=== PATIENT | male | born 1985 | race Caucasian/White ===

== ENCOUNTER 2019-05-07 14:25 | Inpatient (IN) | payer OTHER ==
[2019-05-07 16:17] VITALS: BMI 28.3
--- NOTE | 2019-05-07 17:03 | HP ---
CIWA Score - Admission Criteria [facility]AS Guidelines: Admission for Medically Managed Detox: Requires at least one of the followin. CIWA greater than 12 2. Seizures within the past 24 hours 3. Delirium tremens within the past 24 hours 4. Hallucinations within the past 24 hours 5. Acute intervention needed for co occurring medical disorder 6. Acute intervention needed for co occurring psychiatric disorder 7. Severe withdrawal that cannot be handled at a lower level of care (continued vomiting, continued diarrhea, abnormal vital signs) requiring intravenous medication and/or fluids 8. Admission ROS S - HPI Chief Complaint: Seeking admission to Rehab for crack cocaine dependence Allergies/Adverse Reactions: Allergies Allergy/AdvReac Type Severity Reaction Status Date / Time No Known Allergies Allergy Verified 05/07/19 16:08 History of Present Illness: 33 years old male is seeking admission to rehab for crack cocaine dependence. Patient denies medical history and reports psychiatric history of bipolar disorder, schizophrenia and PTSD. Patient reports that this is his first admission to [facility] and first admission to Rehab. Patient is unemployed and lives with his sister in [place]. He denies suicide attempt and suicidal ideation at this time. Exam Limitations: No Limitations - Ebola screening Have you traveled outside of the country in the last 21 days: No (N) Have you had contact with anyone from an Ebola affected area: No Do you have a fever: No - Review of Systems Constitutional: No Symptoms Reported EENT: reports: No Symptoms Reported Respiratory: reports: No Symptoms reported Cardiac: reports: No Symptoms Reported GI: reports: No Symptoms Reported : reports: No Symptoms Reported Musculoskeletal: reports: No Symptoms Reported Integumentary: reports: No Symptoms Reported Neuro: reports: No Symptoms reported Endocrine: reports: No Symptoms Reported Hematology: reports: No Symptoms Reported Psychiatric: reports: No Sypmtoms Reported, Mood/Affect Appropiate, Orientated x3 Other Systems: Reviewed and Negative Patient History - Patient Medical History Hx Anemia: No Hx Asthma: No Hx Chronic Obstructive Pulmonary Disease (COPD): No Hx Cardiac Disorders: No Hx Congestive Heart Failure: No Hx Hypertension: No Hx Hypercholesterolemia: No Hx Seizures: No Hx Dementia: No Hx Diabetes: No Hx Gastrointestinal Disorders: No Hx Liver Disease: No Hx Genitourinary Disorders: No Hx Sexually Transmitted Disorders: No Hx Renal Disease (ESRD): No Hx Thyroid Disease: No Hx Human Immunodeficiency Virus (HIV): No (Negative 2019) Hx Hepatitis C: No Hx Depression: No Hx Suicide Attempt: No (Denies suicide attempt and suicidal ideation at thiss time) Hx Bipolar Disorder: Yes (Risperdal, depakote, congentin, abilify) Hx Schizophrenia: Yes (Risperdal, depakote, congentin, abilify) - Patient Surgical History Past Surgical History: Yes Hx Neurologic Surgery: No Hx Cataract Extraction: No Hx Cardiac Surgery: No Hx Lung Surgery: No Hx Abdominal Surgery: No Hx Appendectomy: No Hx Cholecystectomy: No Hx Genitourinary Surgery: No Hx Orthopedic Surgery: No Other Surgical History: Tonsilectomy at age 11, Back and shoulder surgery 2012 Anesthesia Reaction: No - PPD History Previous Implant?: Yes Documented Results: Negative w/o proof Implanted On Prior [facility] Admission?: No PPD to be Administered?: Yes - Reproductive History Patient is a Female of Child Bearing Age (11 -55 yrs old): No (male) - Smoking Cessation Smoking history: Current every day smoker Have you smoked in the past 12 months: Yes Aproximately how many cigarettes per day: 10 Hx Chewing Tobacco Use: No Initiated information on smoking cessation: Yes 'Breaking Loose' booklet given: 05/07/19 - Substance & Tx. History Hx Alcohol Use: No Hx Substance Use: Yes Substance Use Type: Cocaine Hx Substance Use Treatment: No - Substances abused Crack Substance route: Smoking Frequency: Daily Amount used: $300 Age of first use: 32 Date of last use: 05/06/19 Admission Physical Exam [facility] - Vital Signs Vital Signs: Vital Signs - 24 hr 05/07/19 16:08 Temperature 97.2 F L Pulse Rate 73 Respiratory 20 Rate Blood Pressure 124/75 - Physical General Appearance: Yes: Within Normal Limits HEENTM: Yes: Nasal Congestion Respiratory: Yes: Lungs Clear, Normal Breath Sounds, No Respiratory Distress Neck: Yes: Within Normal Limits Breast: Yes: Breast Exam Deferred Cardiology: Yes: Regular Rhythm, Regular Rate Abdominal: Yes: Normal Bowel Sounds, Soft Genitourinary: Yes: Within Normal Limits Back: Yes: Normal Inspection Musculoskeletal: Yes: Within Normal Limits Extremities: Yes: Within Normal Limits Neurological: Yes: Within Normal Limits, Alert, Normal Mood/Affect Integumentary: Yes: Warm Lymphatic: Yes: Within Normal Limits Cleared for Admission [facility] - Detox or Rehab [facility] Level of Care: Observation Bed Claeared for Rehab Admission: Yes Breathalyzer - Breathalyzer Breathalyzer: 0 Urine Drug Screen - Test Device Lot number: [id number] Expiration date: 12/03/20 - Control Is test valid?: Yes - Results Drug screen NEGATIVE: No Urine drug screen results: TJ-Cocaine Inpatient Rehab Admission - Rehab Decision to Admit Inpatient rehab admission?: Yes - Initial Determination Are CD services needed?: No Free of communicable disease: Yes Not in need of hospitalization: Yes - Rehab Admission Criteria Previous failed treatment: Yes Poor recovery environment: Yes Comorbidities: Yes Lacks judgement: No Patient is meeting Inpatient Rehab admission criteria:: Yes
[2019-05-07] MEDS ORDERED: MAGNESIUM HYDROX 2400MG/30ML ORAL SUSPENSION 30 ML CUP PO PRN (17:12)
[2019-05-07] MEDS ORDERED: NICOTINE POLACRILEX 2 MG GUM BUC PRN (17:12)
[2019-05-07] MEDS ORDERED: MENTHOL/PHENOL 1 EACH UD MM PRN (17:12)
[2019-05-07] MEDS ORDERED: LOPERAMIDE HCL 2 MG CAPSULE PO PRN (17:12)
[2019-05-07] MEDS ORDERED: MAGNESIUM CITRATE 300 ML BOTTLE PO PRN (17:12)
[2019-05-07] MEDS ORDERED: ACETAMINOPHEN 325 MG TABLET (FP) PO PRN (17:12)
[2019-05-07] MEDS ORDERED: P-EPHED 60MG/TRIPROLIDI 2.5MG TABLET PO PRN (17:12)
[2019-05-07] MEDS: MELATONIN 5 MG TABLETS PO PRN (21:50)
[2019-05-07] MEDS: THIAMINE HCL 100 MG TABLET (FP) PO SCH (21:50)
[2019-05-08] MEDS: IBUPROFEN 400 MG TABLET (FP) PO PRN (06:33)
--- NOTE | 2019-05-08 09:50 | PN ---
[facility] Progress Note Note: Patient is a new admission to [facility] for crack/cocaine dependence. Patient is first time admission to [facility]. Has hx of Bipolar disorder. C/O muscle spasms to lower back, denies recent injuries/fall. Non-radiating, level 5/10. Vital Signs Temperature 97.9 F 05/08/19 07:38 Pulse Rate 76 05/08/19 07:38 Respiratory Rate 20 05/08/19 07:38 Blood Pressure 136/79 05/08/19 07:38 O2 Sat by Pulse Oximetry (%) PE exam limited as patient states " I am tired and sleeping" alert and oriented x 3 in NAD, sleepy skin warm and dry ext full rom, no visible edema A/P: crack/cocaine dependence Muscle spasms Labs pending will add flexeril 5mg tid prn continue rehab services
[2019-05-08 10:14] LABS: ALBUMIN 3.6 g/dl (3.4-5.0); BILIRUBIN,TOTAL 0.6 mg/dL (0.2-1); BLOOD UREA NITROGEN 10.8 mg/dL (7-18); CALCIUM 9.2 mg/dL (8.5-10.1); POTASSIUM 4.1 mmol/L (3.5-5.1); TOT PROT 6.4 g/dl (6.4-8.2)
[2019-05-08 10:16] LABS: HEMATOCRIT 44.7 % (35.4-49); HEMOGLOBIN 14.3 GM/dL (11.7-16.9); MCH 28.7 pg (25.7-33.7); MEAN CELL VOLUME 89.8 fl (80-96); MEAN PLT VOLUME 8.8 fl (7.5-11.1); PLATELET COUNT 197 K/MM3 (134-434); RBC 4.98 M/mm3 (4.00-5.60); RDW 14.7 % (11.9-15.9); WHITE BLOOD COUNT 5.2 K/mm3 (4.0-10.0)
[2019-05-08] MEDS: PRENATAL VITAMINS W/ FOLIC ACID TABLET (FP) PO SCH (10:33)
[2019-05-08] MEDS: guaiFENesin 200 MG/10 ML 10 ML UNIT-DOSE CUPS PO PRN (10:34)
[2019-05-08] MEDS: NICOTINE 14 MG/24 HOURS TOPICAL PATCH TD SCH (10:34)
[2019-05-08] MEDS: CYCLOBENZAPRINE HCL 5 MG TABLET PO PRN (11:11)
--- NOTE | 2019-05-08 12:50 | CONSULT ---
[facility] Psychiatric Consult - Data Date of interview: 05/08/19 Admission source: [facility] Identifying data: First visit to [facility] and direct admission to [address] for this 33 y/o male who sought rehabilitative care to address his DICK issues (cocaine, nicotine) co-morbid with schizoaffective disorder. Patient is single, father of one, domiciled (lives with sister), unemployed and supported by his relatives. Substance Abuse History: Discussed with the patient. Details in current [facility] report as follows : Smoking history: Current every day smoker. Have you smoked in the past 12 months: Yes. Aproximately how many cigarettes per day: 10. Hx Chewing Tobacco Use: No. Initiated information on smoking cessation: Yes. ' Breaking Loose' booklet given: 05/07/19. - Substance & Tx. History. Hx Alcohol Use: No. Hx Substance Use: Yes. Substance Use Type: Cocaine. Hx Substance Use Treatment: No. - Substances abused. Crack. Substance route: Smoking. Frequency: Daily. Amount used: $300. Age of first use: 32. Date of last use: 05/06/19 Medical History: Medical profile is remarkable for antecedent of tonsillectomy ( age 11) and history of orthosurgery (shoulder + back) in 2012. Complaint of chronic lumbar pain. Psychiatric History: Patient endorses history of " a few " psychiatric hospitalizations ([facility] + [facility]) years ago. Reported diagnosis : schizoaffective disorder. Mr Pratt is reportedly followed by [facility] at the [facility] ([facility]) for medication management (risperdal + depakote + cogentin + aripriprazole). Doses are not recalled by the patient. He, however, reports adequate adherence to his medications. Hospice Massage Therapist contacted the pharmacist at [facility] ) : confirmed scripts (not picked up since January 2019) for risperdal 2 mg/hs + depakote 100 mg/bid + abilify 15 mg/day + cogentin 1 mg/hs. Patient denies history of suicide attempts. Physical/Sexual Abuse/Trauma History: Patient denies. Additional Comment: Urine drug screen results: TJ-Cocaine. Noted. Mental Status Exam - Mental Status Exam Alert and Oriented to: Time, Place, Person Cognitive Function: Good Patient Appearance: Well Groomed (tattoos on both forearms + left arm) Mood: Withdrawn, Anxious, Hopeful Affect: Mood Congruent, Constricted Patient Behavior: Fatigued, Appropriate, Cooperative Speech Pattern: Clear, Appropriate Voice Loudness: Normal Thought Process: Intact, Goal Oriented Thought Disorder: Not Present Hallucinations: Denies Suicidal Ideation: Denies Homicidal Ideation: Denies Insight/Judgement: Fair Sleep: Poorly, Difficulty falling asleep Appetite: Good Gait/Station: Normal Psychiatric Findings - Problem List ([place] 1, 2,3) (1) Cocaine use disorder Current Visit: Yes Status: Chronic (2) Nicotine dependence Current Visit: Yes Status: Chronic (3) Substance induced mood disorder Current Visit: Yes Status: Chronic (4) History of schizoaffective disorder Current Visit: Yes Status: Chronic (5) Insomnia Current Visit: Yes Status: Chronic - Initial Treatment Plan Initial Treatment Plan: Psychoeducation. Sleep hygiene. Support. Motivational counseling done in this session. Medications verified (refer to Psychiatric History section). Resumed as follows : risperdal 2 mg po hs + cogentin 1 mg po hs + depakote 500 mg po bid. Side effects/benefits of each drug are discussed with the patient. Mr Pratt is in agreement with this plan of care. Informed consent (verbal) given to MD. Valproic acid level : already requested and result pending. Labs revisited. LFTS + CBC are normal. Observation.
--- NOTE | 2019-05-08 13:27 | EKG ---
Test Reason : Blood Pressure : / mmHG Vent. Rate : 069 BPM Atrial Rate : 069 BPM P-R Int : 116 ms QRS Dur : 092 ms QT Int : 386 ms P-R-T Axes : 035 057 040 degrees QTc Int : 413 ms NORMAL SINUS RHYTHM NORMAL ECG NO PREVIOUS ECGS AVAILABLE Confirmed by SIM WEBBER MD ([id number]) on 05/08/2019 1:27:01 PM Referred By: Confirmed By:SIM WEBBER MD
[2019-05-08] MEDS: risperiDONE 2 MG TABLET PO SCH (21:18)
[2019-05-08] MEDS: DIVALPROEX SODIUM 500 MG TABLET E.C. PO SCH (21:18)
[2019-05-08] MEDS: THIAMINE HCL 100 MG TABLET (FP) PO SCH (21:18)
[2019-05-08] MEDS: BENZTROPINE MESYLATE 1 MG TABLET PO SCH (21:18)
[2019-05-09] MEDS: guaiFENesin 200 MG/10 ML 10 ML UNIT-DOSE CUPS PO PRN (02:04)
[2019-05-09] MEDS ORDERED: ARIPiprazole 10 MG TABLET PO SCH (10:00)
--- NOTE | 2019-05-09 10:02 | PN ---
[facility] Progress Note Note: history of hemorrhoid has hemorrhoidectomy 2 years ago constipated, Vital Signs Temperature 98.0 F 05/09/19 06:48 Pulse Rate 75 05/09/19 06:48 Respiratory Rate 20 05/09/19 06:48 Blood Pressure 132/82 05/09/19 06:48 O2 Sat by Pulse Oximetry (%) no bleeding now treatment advise fluid,diet modification,avoid constipation colace 100mgs po tid anusol hc cream close monitoring financial advisor evaluation for nutrition
[2019-05-09] MEDS: PRENATAL VITAMINS W/ FOLIC ACID TABLET (FP) PO SCH (10:39)
[2019-05-09] MEDS: NICOTINE 14 MG/24 HOURS TOPICAL PATCH TD SCH (10:40)
[2019-05-09] MEDS: DIVALPROEX SODIUM 500 MG TABLET E.C. PO SCH ×2 (10:40→22:11)
[2019-05-09] MEDS: HYDROCORTISONE 2.5% TOPICAL CREAM 30 GM TUBE TP SCH ×2 (10:55→22:11)
[2019-05-09] MEDS: DOCUSATE SODIUM 100 MG CAPSULE (FP) PO PRN (16:54)
[2019-05-09] MEDS: risperiDONE 2 MG TABLET PO SCH (22:11)
[2019-05-09] MEDS: BENZTROPINE MESYLATE 1 MG TABLET PO SCH (22:11)
[2019-05-09] MEDS: THIAMINE HCL 100 MG TABLET (FP) PO SCH (22:11)
[2019-05-10] MEDS: HYDROCORTISONE 2.5% TOPICAL CREAM 30 GM TUBE TP SCH ×2 (10:10→21:07)
[2019-05-10] MEDS: NICOTINE 14 MG/24 HOURS TOPICAL PATCH TD SCH (10:10)
[2019-05-10] MEDS: PRENATAL VITAMINS W/ FOLIC ACID TABLET (FP) PO SCH (10:10)
[2019-05-10] MEDS: DIVALPROEX SODIUM 500 MG TABLET E.C. PO SCH ×2 (10:10→21:06)
[2019-05-10] MEDS: DOCUSATE SODIUM 100 MG CAPSULE (FP) PO PRN (10:11)
[2019-05-10 13:36] LABS: URINE APPEARANCE CLEAR; URINE BILIRUBIN NEGATIVE (NEGATIVE); URINE COLOR YELLOW; URINE GLUCOSE (UA) NEGATIVE (NEGATIVE); URINE KETONE TRACE (NEGATIVE); URINE LEUK ESTERASE NEGATIVE (NEGATIVE); URINE NITRITE NEGATIVE (NEGATIVE); URINE PROTEIN NEGATIVE (NEGATIVE); URINE UROBILINOGEN 0.2 mg/dL (0.2-1.0)
[2019-05-10] MEDS: guaiFENesin 200 MG/10 ML 10 ML UNIT-DOSE CUPS PO PRN (15:15)
[2019-05-10] MEDS: risperiDONE 2 MG TABLET PO SCH (21:06)
[2019-05-10] MEDS: THIAMINE HCL 100 MG TABLET (FP) PO SCH (21:06)
[2019-05-10] MEDS: MELATONIN 5 MG TABLETS PO PRN (21:06)
[2019-05-10] MEDS: BENZTROPINE MESYLATE 1 MG TABLET PO SCH (21:06)
[2019-05-11] MEDS: PRENATAL VITAMINS W/ FOLIC ACID TABLET (FP) PO SCH (11:45)
[2019-05-11] MEDS: DIVALPROEX SODIUM 500 MG TABLET E.C. PO SCH ×2 (11:45→21:20)
[2019-05-11] MEDS: HYDROCORTISONE 2.5% TOPICAL CREAM 30 GM TUBE TP SCH ×2 (11:46→21:22)
[2019-05-11] MEDS: NICOTINE 14 MG/24 HOURS TOPICAL PATCH TD SCH (11:46)
[2019-05-11] MEDS: DOCUSATE SODIUM 100 MG CAPSULE (FP) PO PRN (18:23)
[2019-05-11] MEDS: MELATONIN 5 MG TABLETS PO PRN (21:20)
[2019-05-11] MEDS: BENZTROPINE MESYLATE 1 MG TABLET PO SCH (21:20)
[2019-05-11] MEDS: risperiDONE 2 MG TABLET PO SCH (21:20)
[2019-05-11] MEDS: THIAMINE HCL 100 MG TABLET (FP) PO SCH (21:21)
[2019-05-12] MEDS: DIVALPROEX SODIUM 500 MG TABLET E.C. PO SCH ×2 (10:25→21:29)
[2019-05-12] MEDS: PRENATAL VITAMINS W/ FOLIC ACID TABLET (FP) PO SCH (10:25)
[2019-05-12] MEDS: NICOTINE 14 MG/24 HOURS TOPICAL PATCH TD SCH (10:26)
[2019-05-12] MEDS: hydrOXYzine PAMOATE 25 MG CAPSULE (FP) PO PRN (10:28)
[2019-05-12] MEDS: MAG HYDROX/AL HYDROX/SIMETH 30 ML UNIT-DOSE CUP PO PRN (10:28)
[2019-05-12] MEDS: DOCUSATE SODIUM 100 MG CAPSULE (FP) PO PRN ×2 (10:28→18:55)
[2019-05-12] MEDS: CYCLOBENZAPRINE HCL 5 MG TABLET PO PRN (10:28)
[2019-05-12] MEDS: HYDROCORTISONE 2.5% TOPICAL CREAM 30 GM TUBE TP SCH ×2 (10:30→21:29)
[2019-05-12] MEDS ORDERED: BISMUTH SUBSALICYLATE 262 MG/15 ML BTL PO PRN (10:52)
--- NOTE | 2019-05-12 11:47 | PN ---
Psychiatric Progress Note Vital Signs: Vital Signs Period Temp Pulse Resp BP Sys/Duron Pulse Ox Last 24 Hr 97.9 F 72 18-20 118/74 Date of Session: 05/12/19 Chief Complaint:: "i'm not sleeping at all." HPI: Patient admitted to [facility] for cocaine + nicotine dependence co-morbid schizoaffective disorder. Consultation ordered for insomnia. ROS: Patient is cooperative, alert + oriented X3. Current Medications: Active Medications Generic Name Dose Route Start Last Admin Trade Name Freq PRN Reason Stop Dose Admin Acetaminophen 650 mg 05/07/19 17:12 Tylenol - PO Q4H PRN FEVER Al Hydroxide/Mg Hydroxide 30 ml 05/07/19 17:12 05/12/19 10:28 Mylanta Oral Suspension - PO 30 ml Q6H PRN Administration DYSPEPSIA Benztropine Mesylate 1 mg 05/08/19 22:00 05/11/19 21:20 Cogentin - PO 1 mg HS HONORIO Administration Bismuth Subsalicylate 30 ml 05/12/19 10:52 Pepto-Bismol Liquid - PO BID PRN DIARRHEA Cyclobenzaprine HCl 5 mg 05/08/19 09:46 05/12/19 10:28 Cyclobenzaprine Hcl PO 5 mg TID PRN Administration BACK PAIN Divalproex Sodium 500 mg 05/08/19 22:00 05/12/19 10:25 Depakote - PO 500 mg BID HONORIO Administration Docusate Sodium 100 mg 05/09/19 10:02 05/12/19 10:28 Colace - PO 100 mg Q8H PRN Administration CONSTIPATION Eucalyptus/Menthol/Phenol/Sorbitol 1 each 05/07/19 17:12 Cepastat Lozenge - MM Q4H PRN SORE THROAT Guaifenesin 10 ml 05/07/19 17:12 05/10/19 15:15 Robitussin - PO 10 ml Q6H PRN Administration COUGH Hydrocortisone 1 applic 05/09/19 10:15 05/12/19 10:30 Anusol 2.5% Hc Cream - TP 1 applic BID HONORIO Administration Hydroxyzine Pamoate 25 mg 05/07/19 17:12 05/12/19 10:28 Vistaril - PO 25 mg Q4H PRN Administration AGITATION Ibuprofen 400 mg 05/07/19 17:12 05/08/19 06:33 Motrin - PO 400 mg Q6H PRN Administration Pain level 4-6 Loperamide HCl 4 mg 05/07/19 17:12 Imodium - PO Q6H PRN DIARRHEA Magnesium Citrate 300 ml 05/07/19 17:12 Citroma - PO Q48H PRN CONSTIPATION Magnesium Hydroxide 30 ml 05/07/19 17:12 Milk Of Magnesia - PO DAILY PRN CONSTIPATION Melatonin 5 mg 05/07/19 22:00 05/11/19 21:20 Melatonin PO 5 mg HS PRN Administration INSOMNIA Nicotine 14 mg 05/08/19 10:00 05/12/19 10:26 Nicoderm Patch - TD Not Given DAILY HONORIO Nicotine Polacrilex 2 mg 05/07/19 17:12 05/10/19 17:47 Nicorette Gum - BUC 2 mg Q2H PRN Administration NICOTINE REPLACEMENT RX Multivit/Folic Acid/Iron 1 tab 05/08/19 10:00 05/12/19 10:25 Vitamins (Sjr) - PO 1 tab DAILY HONORIO Administration Pseudoephedrine/Triprolidine 1 combo 05/07/19 17:12 Actifed - PO TID PRN NASAL CONGESTION Risperidone 2 mg 05/08/19 22:00 05/11/19 21:20 Risperdal - PO 2 mg HS HONORIO Administration Thiamine HCl 100 mg 05/07/19 22:00 05/11/19 21:21 Vitamin B1 - PO 100 mg HS HONORIO Administration Medication(s) Change(s): Yes. Current Side Effect: No Lab tests ordered: No Lab tests reviewed: Yes Provider note:: Patient seen by Dr. Prather. Dr. Prather note read and appreciated. Patient with a history of schizoaffective disorder who is currently reporting difficulty sleeping. Will order Belsomra 10mg HS PRN. Patient educated on the importance of proper sleep hygiene. Patient denies auditory/visual hallucinations, suicidal/homicidal ideation. Total face to face time:: 20 Mental Status Exam - Mental Status Exam Alert and Oriented to: Time, Place, Person Cognitive Function: Good Patient Appearance: Well Groomed Mood: Euthymic Affect: Appropriate Patient Behavior: Appropriate, Cooperative Speech Pattern: Clear Voice Loudness: Normal Thought Process: Intact, Goal Oriented Thought Disorder: Not Present Hallucinations: Denies Suicidal Ideation: Denies Homicidal Ideation: Denies Insight/Judgement: Poor Sleep: Poorly Appetite: Fair Muscle strength/Tone: Normal Gait/Station: Normal Psychiatric Treatment Plan - Problem List (1) Cocaine use disorder Current Visit: Yes (2) History of schizoaffective disorder Current Visit: Yes (3) Insomnia Current Visit: Yes (4) Nicotine dependence Current Visit: Yes (5) Substance induced mood disorder Current Visit: Yes
[2019-05-12] MEDS: risperiDONE 2 MG TABLET PO SCH (21:29)
[2019-05-12] MEDS: THIAMINE HCL 100 MG TABLET (FP) PO SCH (21:29)
[2019-05-12] MEDS: MELATONIN 5 MG TABLETS PO PRN (21:29)
[2019-05-12] MEDS: BENZTROPINE MESYLATE 1 MG TABLET PO SCH (21:29)
[2019-05-12] MEDS ORDERED: SUVOREXANT 10 MG TABLET PO PRN (22:00)
[2019-05-13] MEDS: guaiFENesin 200 MG/10 ML 10 ML UNIT-DOSE CUPS PO PRN (06:00)
[2019-05-13] MEDS: MAG HYDROX/AL HYDROX/SIMETH 30 ML UNIT-DOSE CUP PO PRN (06:01)
[2019-05-13] MEDS: DIVALPROEX SODIUM 500 MG TABLET E.C. PO SCH ×2 (10:06→21:38)
[2019-05-13] MEDS: NICOTINE 14 MG/24 HOURS TOPICAL PATCH TD SCH (10:06)
[2019-05-13] MEDS: PRENATAL VITAMINS W/ FOLIC ACID TABLET (FP) PO SCH (10:06)
[2019-05-13] MEDS: CYCLOBENZAPRINE HCL 5 MG TABLET PO PRN (10:09)
[2019-05-13] MEDS: DOCUSATE SODIUM 100 MG CAPSULE (FP) PO PRN (10:09)
[2019-05-13] MEDS: hydrOXYzine PAMOATE 25 MG CAPSULE (FP) PO PRN (10:09)
[2019-05-13] MEDS: HYDROCORTISONE 2.5% TOPICAL CREAM 30 GM TUBE TP SCH ×2 (10:10→21:38)
[2019-05-13] MEDS: risperiDONE 2 MG TABLET PO SCH (21:38)
[2019-05-13] MEDS: THIAMINE HCL 100 MG TABLET (FP) PO SCH (21:38)
[2019-05-13] MEDS: MELATONIN 5 MG TABLETS PO PRN (21:38)
[2019-05-13] MEDS: BENZTROPINE MESYLATE 1 MG TABLET PO SCH (21:38)
[2019-05-14] MEDS: DIVALPROEX SODIUM 500 MG TABLET E.C. PO SCH ×2 (10:14→21:25)
[2019-05-14] MEDS: DOCUSATE SODIUM 100 MG CAPSULE (FP) PO PRN (10:14)
[2019-05-14] MEDS: CYCLOBENZAPRINE HCL 5 MG TABLET PO PRN (10:14)
[2019-05-14] MEDS: MAG HYDROX/AL HYDROX/SIMETH 30 ML UNIT-DOSE CUP PO PRN (10:14)
[2019-05-14] MEDS: hydrOXYzine PAMOATE 25 MG CAPSULE (FP) PO PRN (10:14)
[2019-05-14] MEDS: PRENATAL VITAMINS W/ FOLIC ACID TABLET (FP) PO SCH (10:14)
[2019-05-14] MEDS: guaiFENesin 200 MG/10 ML 10 ML UNIT-DOSE CUPS PO PRN (10:15)
[2019-05-14] MEDS: HYDROCORTISONE 2.5% TOPICAL CREAM 30 GM TUBE TP SCH ×2 (10:45→21:26)
[2019-05-14] MEDS: NICOTINE 14 MG/24 HOURS TOPICAL PATCH TD SCH (10:45)
--- NOTE | 2019-05-14 13:56 | PN ---
S Progress Note Note: Patient is still complaining of sleeping poorly despite taking Belsomra 10 mg/ hs. Requests to be ordered a higher dose of medication. Belsomra dosage is increased to 15 mg/hs prn
[2019-05-14] MEDS: BENZTROPINE MESYLATE 1 MG TABLET PO SCH (21:24)
[2019-05-14] MEDS: risperiDONE 2 MG TABLET PO SCH (21:24)
[2019-05-14] MEDS: IBUPROFEN 400 MG TABLET (FP) PO PRN (21:25)
[2019-05-14] MEDS: THIAMINE HCL 100 MG TABLET (FP) PO SCH (21:25)
[2019-05-14] MEDS: SUVOREXANT 15 MG TABLET PO PRN (21:27)
[2019-05-15] MEDS: DIVALPROEX SODIUM 500 MG TABLET E.C. PO SCH ×2 (09:56→21:08)
[2019-05-15] MEDS: DOCUSATE SODIUM 100 MG CAPSULE (FP) PO PRN ×2 (09:56→18:28)
[2019-05-15] MEDS: PRENATAL VITAMINS W/ FOLIC ACID TABLET (FP) PO SCH (09:56)
[2019-05-15] MEDS: guaiFENesin 200 MG/10 ML 10 ML UNIT-DOSE CUPS PO PRN ×2 (09:56→18:28)
[2019-05-15] MEDS: hydrOXYzine PAMOATE 25 MG CAPSULE (FP) PO PRN (09:56)
[2019-05-15] MEDS: CYCLOBENZAPRINE HCL 5 MG TABLET PO PRN (09:56)
[2019-05-15] MEDS: NICOTINE 14 MG/24 HOURS TOPICAL PATCH TD SCH (10:06)
[2019-05-15] MEDS: HYDROCORTISONE 2.5% TOPICAL CREAM 30 GM TUBE TP SCH ×2 (10:06→21:41)
[2019-05-15] MEDS: BENZTROPINE MESYLATE 1 MG TABLET PO SCH (21:08)
[2019-05-15] MEDS: risperiDONE 2 MG TABLET PO SCH (21:08)
[2019-05-15] MEDS: THIAMINE HCL 100 MG TABLET (FP) PO SCH (21:08)
[2019-05-15] MEDS: SUVOREXANT 15 MG TABLET PO PRN (21:09)
[2019-05-16] MEDS: PRENATAL VITAMINS W/ FOLIC ACID TABLET (FP) PO SCH (10:22)
[2019-05-16] MEDS: NICOTINE 14 MG/24 HOURS TOPICAL PATCH TD SCH (10:22)
[2019-05-16] MEDS: DIVALPROEX SODIUM 500 MG TABLET E.C. PO SCH ×2 (10:22→21:48)
[2019-05-16] MEDS: HYDROCORTISONE 2.5% TOPICAL CREAM 30 GM TUBE TP SCH ×2 (10:23→21:48)
[2019-05-16] MEDS: DOCUSATE SODIUM 100 MG CAPSULE (FP) PO PRN (10:24)
[2019-05-16] MEDS: guaiFENesin 200 MG/10 ML 10 ML UNIT-DOSE CUPS PO PRN (10:24)
[2019-05-16] MEDS: risperiDONE 2 MG TABLET PO SCH (21:48)
[2019-05-16] MEDS: THIAMINE HCL 100 MG TABLET (FP) PO SCH (21:48)
[2019-05-16] MEDS: BENZTROPINE MESYLATE 1 MG TABLET PO SCH (21:48)
[2019-05-16] MEDS: SUVOREXANT 15 MG TABLET PO PRN (21:49)
[2019-05-17] MEDS: DIVALPROEX SODIUM 500 MG TABLET E.C. PO SCH ×2 (09:25→21:26)
[2019-05-17] MEDS: NICOTINE 14 MG/24 HOURS TOPICAL PATCH TD SCH (09:25)
[2019-05-17] MEDS: PRENATAL VITAMINS W/ FOLIC ACID TABLET (FP) PO SCH (09:25)
[2019-05-17] MEDS: DOCUSATE SODIUM 100 MG CAPSULE (FP) PO PRN (09:26)
[2019-05-17] MEDS: HYDROCORTISONE 2.5% TOPICAL CREAM 30 GM TUBE TP SCH ×2 (09:30→21:26)
--- NOTE | 2019-05-17 14:38 | PN ---
S Progress Note Note: Patient continues to report sleeping poorly despite taking Belsomra 15 mg/hs. Requests to have increase in Belsomra dosage. Belsomra 20 mg/hs prn ordered
[2019-05-17] MEDS: risperiDONE 2 MG TABLET PO SCH (21:26)
[2019-05-17] MEDS: THIAMINE HCL 100 MG TABLET (FP) PO SCH (21:26)
[2019-05-17] MEDS: BENZTROPINE MESYLATE 1 MG TABLET PO SCH (21:26)
[2019-05-17] MEDS: SUVOREXANT 10 MG TABLET PO PRN (21:27)
[2019-05-17] MEDS ORDERED: SUVOREXANT 5 MG TABLET PO PRN (22:00)
[2019-05-18] MEDS: DIVALPROEX SODIUM 500 MG TABLET E.C. PO SCH ×2 (10:14→21:23)
[2019-05-18] MEDS: NICOTINE 14 MG/24 HOURS TOPICAL PATCH TD SCH (10:56)
[2019-05-18] MEDS: HYDROCORTISONE 2.5% TOPICAL CREAM 30 GM TUBE TP SCH ×2 (10:56→21:22)
[2019-05-18] MEDS: PRENATAL VITAMINS W/ FOLIC ACID TABLET (FP) PO SCH (10:57)
[2019-05-18] MEDS: CYCLOBENZAPRINE HCL 5 MG TABLET PO PRN ×2 (10:57→21:24)
[2019-05-18] MEDS: hydrOXYzine PAMOATE 25 MG CAPSULE (FP) PO PRN (10:57)
[2019-05-18] MEDS: DOCUSATE SODIUM 100 MG CAPSULE (FP) PO PRN (10:57)
[2019-05-18] MEDS: risperiDONE 2 MG TABLET PO SCH (21:23)
[2019-05-18] MEDS: BENZTROPINE MESYLATE 1 MG TABLET PO SCH (21:23)
[2019-05-18] MEDS: SUVOREXANT 10 MG TABLET PO PRN (21:24)
[2019-05-18] MEDS: THIAMINE HCL 100 MG TABLET (FP) PO SCH (21:24)
[2019-05-19] MEDS: IBUPROFEN 400 MG TABLET (FP) PO PRN (10:15)
[2019-05-19] MEDS: HYDROCORTISONE 2.5% TOPICAL CREAM 30 GM TUBE TP SCH ×2 (10:15→21:14)
[2019-05-19] MEDS: PRENATAL VITAMINS W/ FOLIC ACID TABLET (FP) PO SCH (10:15)
[2019-05-19] MEDS: DOCUSATE SODIUM 100 MG CAPSULE (FP) PO PRN (10:15)
[2019-05-19] MEDS: DIVALPROEX SODIUM 500 MG TABLET E.C. PO SCH ×2 (10:15→21:14)
[2019-05-19] MEDS: hydrOXYzine PAMOATE 25 MG CAPSULE (FP) PO PRN (10:15)
[2019-05-19] MEDS: NICOTINE 14 MG/24 HOURS TOPICAL PATCH TD SCH (10:15)
[2019-05-19] MEDS: CYCLOBENZAPRINE HCL 5 MG TABLET PO PRN (10:15)
--- NOTE | 2019-05-19 17:22 | PN ---
Psychiatric Progress Note Vital Signs: Vital Signs Period Temp Pulse Resp BP Sys/Duron Pulse Ox Last 24 Hr 97.5 F 85 18-20 120/68 Date of Session: 05/19/19 Chief Complaint:: " I want to get back on suboxone ". HPI: Uneventful hospital course. Patient wanted to see a psychiatrist to inquire about the suboxone program. ROS: Unremarkable. Current Medications: Active Medications Generic Name Dose Route Start Last Admin Trade Name Freq PRN Reason Stop Dose Admin Acetaminophen 650 mg 05/07/19 17:12 Tylenol - PO Q4H PRN FEVER Al Hydroxide/Mg Hydroxide 30 ml 05/07/19 17:12 05/14/19 10:14 Mylanta Oral Suspension - PO 30 ml Q6H PRN Administration DYSPEPSIA Benztropine Mesylate 1 mg 05/08/19 22:00 05/18/19 21:23 Cogentin - PO 1 mg HS HONORIO Administration Bismuth Subsalicylate 30 ml 05/12/19 10:52 Pepto-Bismol Liquid - PO BID PRN DIARRHEA Cyclobenzaprine HCl 5 mg 05/08/19 09:46 05/19/19 10:15 Cyclobenzaprine Hcl PO 5 mg TID PRN Administration BACK PAIN Divalproex Sodium 500 mg 05/08/19 22:00 05/19/19 10:15 Depakote - PO 500 mg BID HONORIO Administration Docusate Sodium 100 mg 05/09/19 10:02 05/19/19 10:15 Colace - PO 100 mg Q8H PRN Administration CONSTIPATION Eucalyptus/Menthol/Phenol/Sorbitol 1 each 05/07/19 17:12 Cepastat Lozenge - MM Q4H PRN SORE THROAT Guaifenesin 10 ml 05/07/19 17:12 05/16/19 10:24 Robitussin - PO 10 ml Q6H PRN Administration COUGH Hydrocortisone 1 applic 05/09/19 10:15 05/19/19 10:15 Anusol 2.5% Hc Cream - TP Not Given BID HONORIO Hydroxyzine Pamoate 25 mg 05/07/19 17:12 05/19/19 10:15 Vistaril - PO 25 mg Q4H PRN Administration AGITATION Ibuprofen 400 mg 05/07/19 17:12 05/19/19 10:15 Motrin - PO 400 mg Q6H PRN Administration Pain level 4-6 Loperamide HCl 4 mg 05/07/19 17:12 Imodium - PO Q6H PRN DIARRHEA Magnesium Citrate 300 ml 05/07/19 17:12 Citroma - PO Q48H PRN CONSTIPATION Magnesium Hydroxide 30 ml 05/07/19 17:12 Milk Of Magnesia - PO DAILY PRN CONSTIPATION Nicotine 14 mg 05/08/19 10:00 05/19/19 10:15 Nicoderm Patch - TD Not Given DAILY HONORIO Nicotine Polacrilex 2 mg 05/07/19 17:12 05/10/19 17:47 Nicorette Gum - BUC 2 mg Q2H PRN Administration NICOTINE REPLACEMENT RX Multivit/Folic Acid/Iron 1 tab 05/08/19 10:00 05/19/19 10:15 Vitamins (Sjr) - PO 1 tab DAILY HONORIO Administration Pseudoephedrine/Triprolidine 1 combo 05/07/19 17:12 Actifed - PO TID PRN NASAL CONGESTION Risperidone 2 mg 05/08/19 22:00 05/18/19 21:23 Risperdal - PO 2 mg HS HONORIO Administration Suvorexant 20 mg 05/17/19 22:00 05/18/19 21:24 Belsomra PO 20 mg HS PRN Administration INSOMNIA Thiamine HCl 100 mg 05/07/19 22:00 05/18/19 21:24 Vitamin B1 - PO 100 mg HS HONORIO Administration Medication(s) Change(s): No changes. Current Side Effect: No Lab tests ordered: No Lab tests reviewed: Yes Provider note:: Chart reviewed. Patient seen. Doing well. Stable mental status. Request for enrollment in the suboxone program : aknowledged. Patient has no prior history of opioid dependence. Questionable request. Mr Pratt is referred to medical provider, on , for evaluation and management. Total face to face time:: 15 Mental Status Exam - Mental Status Exam Alert and Oriented to: Time, Place, Person Cognitive Function: Good Patient Appearance: Well Groomed Mood: Nervous, Anxious, Hopeful Affect: Appropriate, Normal Range Patient Behavior: Appropriate, Cooperative Speech Pattern: Clear, Appropriate Voice Loudness: Normal Thought Process: Intact, Goal Oriented Thought Disorder: Not Present Hallucinations: Denies Suicidal Ideation: Denies Homicidal Ideation: Denies Insight/Judgement: Fair Sleep: Well Appetite: Good Gait/Station: Normal Psychiatric Treatment Plan - Problem List (1) Cocaine use disorder Current Visit: Yes Comment: . (2) Nicotine dependence Current Visit: Yes Comment: . (3) Substance induced mood disorder Current Visit: Yes Comment: . (4) History of schizoaffective disorder Current Visit: Yes Comment: . (5) Insomnia Current Visit: Yes Comment: .
[2019-05-19] MEDS: risperiDONE 2 MG TABLET PO SCH (21:14)
[2019-05-19] MEDS: THIAMINE HCL 100 MG TABLET (FP) PO SCH (21:14)
[2019-05-19] MEDS: BENZTROPINE MESYLATE 1 MG TABLET PO SCH (21:14)
[2019-05-20] MEDS: PRENATAL VITAMINS W/ FOLIC ACID TABLET (FP) PO SCH (10:32)
[2019-05-20] MEDS: DIVALPROEX SODIUM 500 MG TABLET E.C. PO SCH ×2 (10:33→21:24)
[2019-05-20] MEDS: NICOTINE 14 MG/24 HOURS TOPICAL PATCH TD SCH (10:33)
[2019-05-20] MEDS: HYDROCORTISONE 2.5% TOPICAL CREAM 30 GM TUBE TP SCH ×2 (10:33→21:24)
[2019-05-20] MEDS: CYCLOBENZAPRINE HCL 5 MG TABLET PO PRN (11:32)
[2019-05-20] MEDS: DOCUSATE SODIUM 100 MG CAPSULE (FP) PO PRN (13:24)
--- NOTE | 2019-05-20 13:49 | PN ---
S Progress Note Note: Pt here requesting Suboxone for pain. Pt came in for cocaine detox. d/w pt that he would not be a candidate for Bupe. Pt can take motrin and tylenol for pain
[2019-05-20] MEDS: BENZTROPINE MESYLATE 1 MG TABLET PO SCH (21:24)
[2019-05-20] MEDS: risperiDONE 2 MG TABLET PO SCH (21:24)
[2019-05-20] MEDS: THIAMINE HCL 100 MG TABLET (FP) PO SCH (21:24)
[2019-05-20] MEDS: SUVOREXANT 10 MG TABLET PO PRN (21:25)
--- NOTE | 2019-05-21 10:16 | PN ---
[facility] Progress Note Note: Patient complaining of back pain. A/P:1. Musculoskeletal pain: Increased dose of Inbuprofen to 600mg every 6 hours as needed after food preferrably. Dr. Elmore
[2019-05-21] MEDS: DOCUSATE SODIUM 100 MG CAPSULE (FP) PO PRN ×2 (10:17→21:12)
[2019-05-21] MEDS: PRENATAL VITAMINS W/ FOLIC ACID TABLET (FP) PO SCH (10:17)
[2019-05-21] MEDS: NICOTINE 14 MG/24 HOURS TOPICAL PATCH TD SCH (10:17)
[2019-05-21] MEDS: HYDROCORTISONE 2.5% TOPICAL CREAM 30 GM TUBE TP SCH ×2 (10:18→21:13)
[2019-05-21] MEDS: DIVALPROEX SODIUM 500 MG TABLET E.C. PO SCH ×2 (10:18→21:12)
[2019-05-21] MEDS: THIAMINE HCL 100 MG TABLET (FP) PO SCH (21:12)
[2019-05-21] MEDS: BENZTROPINE MESYLATE 1 MG TABLET PO SCH (21:12)
[2019-05-21] MEDS: risperiDONE 2 MG TABLET PO SCH (21:12)
[2019-05-21] MEDS: SUVOREXANT 10 MG TABLET PO PRN (21:13)
[2019-05-22] MEDS: DOCUSATE SODIUM 100 MG CAPSULE (FP) PO PRN (10:56)
[2019-05-22] MEDS: PRENATAL VITAMINS W/ FOLIC ACID TABLET (FP) PO SCH (10:56)
[2019-05-22] MEDS: DIVALPROEX SODIUM 500 MG TABLET E.C. PO SCH ×2 (10:56→21:23)
[2019-05-22] MEDS: NICOTINE 14 MG/24 HOURS TOPICAL PATCH TD SCH (10:57)
[2019-05-22] MEDS: HYDROCORTISONE 2.5% TOPICAL CREAM 30 GM TUBE TP SCH ×2 (10:58→21:23)
[2019-05-22] MEDS: BENZTROPINE MESYLATE 1 MG TABLET PO SCH (21:23)
[2019-05-22] MEDS: THIAMINE HCL 100 MG TABLET (FP) PO SCH (21:23)
[2019-05-22] MEDS: risperiDONE 2 MG TABLET PO SCH (21:23)
[2019-05-22] MEDS: SUVOREXANT 10 MG TABLET PO PRN (21:24)
[2019-05-22] MEDS: IBUPROFEN 400 MG TABLET (FP) PO PRN (23:17)
[2019-05-23] MEDS: DIVALPROEX SODIUM 500 MG TABLET E.C. PO SCH ×2 (10:29→21:11)
[2019-05-23] MEDS: PRENATAL VITAMINS W/ FOLIC ACID TABLET (FP) PO SCH (10:29)
[2019-05-23] MEDS: HYDROCORTISONE 2.5% TOPICAL CREAM 30 GM TUBE TP SCH ×2 (10:29→21:09)
[2019-05-23] MEDS: NICOTINE 14 MG/24 HOURS TOPICAL PATCH TD SCH (10:30)
[2019-05-23] MEDS: DOCUSATE SODIUM 100 MG CAPSULE (FP) PO PRN (11:29)
[2019-05-23] MEDS: guaiFENesin 200 MG/10 ML 10 ML UNIT-DOSE CUPS PO PRN (16:32)
[2019-05-23] MEDS: BENZTROPINE MESYLATE 1 MG TABLET PO SCH (21:11)
[2019-05-23] MEDS: risperiDONE 2 MG TABLET PO SCH (21:11)
[2019-05-23] MEDS: THIAMINE HCL 100 MG TABLET (FP) PO SCH (21:11)
[2019-05-23] MEDS: SUVOREXANT 10 MG TABLET PO PRN (21:12)
[2019-05-23] MEDS: hydrOXYzine PAMOATE 25 MG CAPSULE (FP) PO PRN (23:33)
[2019-05-24] MEDS: NICOTINE 14 MG/24 HOURS TOPICAL PATCH TD SCH (10:12)
[2019-05-24] MEDS: DIVALPROEX SODIUM 500 MG TABLET E.C. PO SCH ×2 (10:12→21:24)
[2019-05-24] MEDS: DOCUSATE SODIUM 100 MG CAPSULE (FP) PO PRN ×2 (10:12→17:46)
[2019-05-24] MEDS: PRENATAL VITAMINS W/ FOLIC ACID TABLET (FP) PO SCH (10:12)
[2019-05-24] MEDS: HYDROCORTISONE 2.5% TOPICAL CREAM 30 GM TUBE TP SCH ×2 (10:13→21:24)
--- NOTE | 2019-05-24 10:33 | PN ---
[facility] Progress Note Note: Psychiatric nurse practitioner note: Belsomra 20mg HS PRN renewed X3 days. Verbal consent given.
[2019-05-24] MEDS: guaiFENesin 200 MG/10 ML 10 ML UNIT-DOSE CUPS PO PRN (16:38)
[2019-05-24] MEDS: IBUPROFEN 400 MG TABLET (FP) PO PRN (17:46)
[2019-05-24] MEDS: hydrOXYzine PAMOATE 25 MG CAPSULE (FP) PO PRN (21:24)
[2019-05-24] MEDS: risperiDONE 2 MG TABLET PO SCH (21:24)
[2019-05-24] MEDS: THIAMINE HCL 100 MG TABLET (FP) PO SCH (21:24)
[2019-05-24] MEDS: BENZTROPINE MESYLATE 1 MG TABLET PO SCH (21:24)
[2019-05-24] MEDS ORDERED: SUVOREXANT 10 MG TABLET PO PRN (22:00)
[2019-05-25] MEDS: PRENATAL VITAMINS W/ FOLIC ACID TABLET (FP) PO SCH (09:05)
[2019-05-25] MEDS: guaiFENesin 200 MG/10 ML 10 ML UNIT-DOSE CUPS PO PRN (09:05)
[2019-05-25] MEDS: DIVALPROEX SODIUM 500 MG TABLET E.C. PO SCH ×2 (09:05→21:08)
[2019-05-25] MEDS: DOCUSATE SODIUM 100 MG CAPSULE (FP) PO PRN (09:06)
[2019-05-25] MEDS: IBUPROFEN 600 MG TABLET (FP) PO PRN (09:08)
[2019-05-25] MEDS: HYDROCORTISONE 2.5% TOPICAL CREAM 30 GM TUBE TP SCH ×2 (09:09→21:08)
[2019-05-25] MEDS: NICOTINE 14 MG/24 HOURS TOPICAL PATCH TD SCH (09:09)
[2019-05-25] MEDS: hydrOXYzine PAMOATE 25 MG CAPSULE (FP) PO PRN (13:43)
[2019-05-25] MEDS: CARBAMIDE PEROXIDE 6.5% OTIC 15 ML BOTTLE AU SCH ×2 (14:16→21:08)
[2019-05-25] MEDS: THIAMINE HCL 100 MG TABLET (FP) PO SCH (21:08)
[2019-05-25] MEDS: BENZTROPINE MESYLATE 1 MG TABLET PO SCH (21:08)
[2019-05-25] MEDS: risperiDONE 2 MG TABLET PO SCH (21:08)
[2019-05-25] MEDS: SUVOREXANT 20 MG TABLET PO PRN (21:10)
[2019-05-26] MEDS: HYDROCORTISONE 2.5% TOPICAL CREAM 30 GM TUBE TP SCH ×2 (09:40→21:30)
[2019-05-26] MEDS: CARBAMIDE PEROXIDE 6.5% OTIC 15 ML BOTTLE AU SCH ×2 (09:40→21:31)
[2019-05-26] MEDS: DIVALPROEX SODIUM 500 MG TABLET E.C. PO SCH ×2 (09:40→21:29)
[2019-05-26] MEDS: IBUPROFEN 600 MG TABLET (FP) PO PRN (09:41)
[2019-05-26] MEDS: PRENATAL VITAMINS W/ FOLIC ACID TABLET (FP) PO SCH (09:41)
[2019-05-26] MEDS: NICOTINE 14 MG/24 HOURS TOPICAL PATCH TD SCH (09:41)
[2019-05-26] MEDS: guaiFENesin 200 MG/10 ML 10 ML UNIT-DOSE CUPS PO PRN (15:02)
[2019-05-26] MEDS: DOCUSATE SODIUM 100 MG CAPSULE (FP) PO PRN (15:02)
[2019-05-26] MEDS: THIAMINE HCL 100 MG TABLET (FP) PO SCH (21:29)
[2019-05-26] MEDS: BENZTROPINE MESYLATE 1 MG TABLET PO SCH (21:29)
[2019-05-26] MEDS: risperiDONE 2 MG TABLET PO SCH (21:29)
[2019-05-26] MEDS: hydrOXYzine PAMOATE 25 MG CAPSULE (FP) PO PRN (21:30)
[2019-05-26] MEDS: SUVOREXANT 20 MG TABLET PO PRN (21:31)
[2019-05-27] MEDS: IBUPROFEN 600 MG TABLET (FP) PO PRN (00:34)
[2019-05-27] MEDS: PRENATAL VITAMINS W/ FOLIC ACID TABLET (FP) PO SCH (09:54)
[2019-05-27] MEDS: DOCUSATE SODIUM 100 MG CAPSULE (FP) PO PRN (09:54)
[2019-05-27] MEDS: DIVALPROEX SODIUM 500 MG TABLET E.C. PO SCH ×2 (09:54→21:30)
[2019-05-27] MEDS: CARBAMIDE PEROXIDE 6.5% OTIC 15 ML BOTTLE AU SCH ×2 (09:54→21:32)
[2019-05-27] MEDS: HYDROCORTISONE 2.5% TOPICAL CREAM 30 GM TUBE TP SCH ×2 (09:55→21:32)
[2019-05-27] MEDS: NICOTINE 14 MG/24 HOURS TOPICAL PATCH TD SCH (09:55)
[2019-05-27] MEDS ORDERED: IBUPROFEN 400 MG TABLET (FP) PO PRN (11:07)
[2019-05-27] MEDS ORDERED: BENZOCAINE 20 % GEL TUBE MM PRN (11:07)
--- NOTE | 2019-05-27 11:12 | PN ---
[facility] Progress Note (SOAP) Subjective: C/o toothache Objective: 05/27/19 11:10 Vital Signs Period Temp Pulse Resp BP Sys/Duron Pulse Ox Last 24 Hr 97.9 F 78 18-20 118/80 P/E: general: no apparent distress HEENTM: molar, left side with cavity Neck: supple Neuro: Cn 2-12 intact Assessment: Toothache 05/27/19 11:11 Plan: anbesol ordered Motrin increased to 800mg every 8 hours Good dental hygiene encouraged
[2019-05-27] MEDS: IBUPROFEN 400 MG TABLET (FP) PO PRN (13:03)
[2019-05-27] MEDS: CYCLOBENZAPRINE HCL 5 MG TABLET PO PRN (13:04)
[2019-05-27] MEDS: risperiDONE 2 MG TABLET PO SCH (21:30)
[2019-05-27] MEDS: THIAMINE HCL 100 MG TABLET (FP) PO SCH (21:30)
[2019-05-27] MEDS: BENZTROPINE MESYLATE 1 MG TABLET PO SCH (21:30)
[2019-05-27] MEDS: SUVOREXANT 20 MG TABLET PO PRN (21:32)
[2019-05-28] MEDS: IBUPROFEN 400 MG TABLET (FP) PO PRN ×2 (10:21→16:58)
[2019-05-28] MEDS: DIVALPROEX SODIUM 500 MG TABLET E.C. PO SCH ×2 (10:21→21:12)
[2019-05-28] MEDS: PRENATAL VITAMINS W/ FOLIC ACID TABLET (FP) PO SCH (10:21)
[2019-05-28] MEDS: DOCUSATE SODIUM 100 MG CAPSULE (FP) PO PRN (10:21)
[2019-05-28] MEDS: CARBAMIDE PEROXIDE 6.5% OTIC 15 ML BOTTLE AU SCH ×2 (10:23→21:13)
[2019-05-28] MEDS: HYDROCORTISONE 2.5% TOPICAL CREAM 30 GM TUBE TP SCH ×2 (10:24→21:13)
[2019-05-28] MEDS: NICOTINE 14 MG/24 HOURS TOPICAL PATCH TD SCH (10:25)
--- NOTE | 2019-05-28 13:59 | PN ---
S Progress Note Note: Patient continues to reports experiencing difficulty to sleep despita taking Belsomra 20 mg/hs along with other bedtime medications. Will add Benadryl 50 mg/ hs to address insomnia
[2019-05-28] MEDS: guaiFENesin 200 MG/10 ML 10 ML UNIT-DOSE CUPS PO PRN (15:10)
[2019-05-28] MEDS: SUVOREXANT 20 MG TABLET PO PRN (21:12)
[2019-05-28] MEDS: BENZTROPINE MESYLATE 1 MG TABLET PO SCH (21:12)
[2019-05-28] MEDS: THIAMINE HCL 100 MG TABLET (FP) PO SCH (21:12)
[2019-05-28] MEDS: CYCLOBENZAPRINE HCL 5 MG TABLET PO PRN (21:12)
[2019-05-28] MEDS: risperiDONE 2 MG TABLET PO SCH (22:08)
[2019-05-28] MEDS: hydrOXYzine PAMOATE 25 MG CAPSULE (FP) PO PRN (22:09)
[2019-05-29] MEDS: DIVALPROEX SODIUM 500 MG TABLET E.C. PO SCH ×2 (10:45→21:34)
[2019-05-29] MEDS: PRENATAL VITAMINS W/ FOLIC ACID TABLET (FP) PO SCH (10:45)
[2019-05-29] MEDS: DOCUSATE SODIUM 100 MG CAPSULE (FP) PO PRN (10:45)
[2019-05-29] MEDS: IBUPROFEN 400 MG TABLET (FP) PO PRN ×2 (10:45→19:07)
[2019-05-29] MEDS: NICOTINE 14 MG/24 HOURS TOPICAL PATCH TD SCH (10:47)
[2019-05-29] MEDS: CARBAMIDE PEROXIDE 6.5% OTIC 15 ML BOTTLE AU SCH ×2 (10:47→21:36)
[2019-05-29] MEDS: HYDROCORTISONE 2.5% TOPICAL CREAM 30 GM TUBE TP SCH ×2 (10:47→21:36)
[2019-05-29] MEDS: THIAMINE HCL 100 MG TABLET (FP) PO SCH (21:34)
[2019-05-29] MEDS: risperiDONE 2 MG TABLET PO SCH (21:34)
[2019-05-29] MEDS: BENZTROPINE MESYLATE 1 MG TABLET PO SCH (21:34)
[2019-05-29] MEDS: SUVOREXANT 20 MG TABLET PO PRN (21:36)
[2019-05-30] MEDS: NICOTINE 14 MG/24 HOURS TOPICAL PATCH TD SCH (10:11)
[2019-05-30] MEDS: DIVALPROEX SODIUM 500 MG TABLET E.C. PO SCH ×2 (10:11→21:13)
[2019-05-30] MEDS: HYDROCORTISONE 2.5% TOPICAL CREAM 30 GM TUBE TP SCH ×2 (10:11→21:14)
[2019-05-30] MEDS: PRENATAL VITAMINS W/ FOLIC ACID TABLET (FP) PO SCH (10:11)
[2019-05-30] MEDS: CARBAMIDE PEROXIDE 6.5% OTIC 15 ML BOTTLE AU SCH ×2 (10:11→21:14)
[2019-05-30] MEDS: IBUPROFEN 400 MG TABLET (FP) PO PRN (11:03)
[2019-05-30] MEDS: THIAMINE HCL 100 MG TABLET (FP) PO SCH (21:13)
[2019-05-30] MEDS: BENZTROPINE MESYLATE 1 MG TABLET PO SCH (21:13)
[2019-05-30] MEDS: SUVOREXANT 20 MG TABLET PO PRN (21:13)
[2019-05-30] MEDS: risperiDONE 2 MG TABLET PO SCH (21:14)
[2019-05-31] MEDS: DIVALPROEX SODIUM 500 MG TABLET E.C. PO SCH ×2 (10:22→21:31)
[2019-05-31] MEDS: PRENATAL VITAMINS W/ FOLIC ACID TABLET (FP) PO SCH (10:22)
[2019-05-31] MEDS: HYDROCORTISONE 2.5% TOPICAL CREAM 30 GM TUBE TP SCH ×2 (10:22→21:32)
[2019-05-31] MEDS: NICOTINE 14 MG/24 HOURS TOPICAL PATCH TD SCH (10:22)
[2019-05-31] MEDS: CARBAMIDE PEROXIDE 6.5% OTIC 15 ML BOTTLE AU SCH ×2 (10:22→21:32)
[2019-05-31] MEDS: BENZTROPINE MESYLATE 1 MG TABLET PO SCH (21:31)
[2019-05-31] MEDS: THIAMINE HCL 100 MG TABLET (FP) PO SCH (21:31)
[2019-05-31] MEDS: risperiDONE 2 MG TABLET PO SCH (21:31)
--- NOTE | 2019-06-01 09:39 | PN ---
[facility] Progress Note Note: Patient c/o left hand discomfort. States mildly relieved with IBU. Denies recent injury to hands/arms. Discomfort dull ache, non-radiating. Vital Signs Temperature 97.7 F 06/01/19 06:53 Pulse Rate 89 06/01/19 06:53 Respiratory Rate 18 06/01/19 06:53 Blood Pressure 128/88 06/01/19 06:53 O2 Sat by Pulse Oximetry (%) Laboratory Tests 05/08/19 05/08/19 05/08/19 07:40 07:40 07:40 WBC 5.2 RBC 4.98 Hgb 14.3 Hct 44.7 MCV 89.8 MCH 28.7 MCHC 32.0 RDW 14.7 Plt Count 197 MPV 8.8 Sodium 141 Potassium 4.1 Chloride 108 H Carbon Dioxide 27 Anion Gap 6 L BUN 10.8 Creatinine 1.0 Est GFR (CKD-EPI)AfAm 114.91 Est GFR (CKD-EPI)NonAf 99.15 Random Glucose 88 Calcium 9.2 Total Bilirubin 0.6 AST 22 ALT 28 Alkaline Phosphatase 66 Total Protein 6.4 Albumin 3.6 Urine Color Urine Appearance Urine pH Ur Specific [place] Urine Protein Urine Glucose (UA) Urine Ketones Urine Blood Urine Nitrite Urine Bilirubin Urine Urobilinogen Ur Leukocyte Esterase Valproic Acid RPR Titer Nonreactive Hep C Ab Diagnostic HIV 1&2 Antibody Screen HIV P24 Antigen 05/08/19 05/08/19 05/08/19 07:40 07:40 11:00 WBC RBC Hgb Hct MCV MCH MCHC RDW Plt Count MPV Sodium Potassium Chloride Carbon Dioxide Anion Gap BUN Creatinine Est GFR (CKD-EPI)AfAm Est GFR (CKD-EPI)NonAf Random Glucose Calcium Total Bilirubin AST ALT Alkaline Phosphatase Total Protein Albumin Urine Color Urine Appearance Urine pH Ur Specific [place] Urine Protein Urine Glucose (UA) Urine Ketones Urine Blood Urine Nitrite Urine Bilirubin Urine Urobilinogen Ur Leukocyte Esterase Valproic Acid 7.6 L RPR Titer Hep C Ab Diagnostic 0.2 HIV 1&2 Antibody Screen Negative HIV P24 Antigen Negative 05/10/19 06:41 WBC RBC Hgb Hct MCV MCH MCHC RDW Plt Count MPV Sodium Potassium Chloride Carbon Dioxide Anion Gap BUN Creatinine Est GFR (CKD-EPI)AfAm Est GFR (CKD-EPI)NonAf Random Glucose Calcium Total Bilirubin AST ALT Alkaline Phosphatase Total Protein Albumin Urine Color Yellow Urine Appearance Clear Urine pH 6.0 Ur Specific [place] 1.023 Urine Protein Negative Urine Glucose (UA) Negative Urine Ketones Trace H Urine Blood Negative Urine Nitrite Negative Urine Bilirubin Negative Urine Urobilinogen 0.2 Ur Leukocyte Esterase Negative Valproic Acid RPR Titer Hep C Ab Diagnostic HIV 1&2 Antibody Screen HIV P24 Antigen PE: alert and oriented x 3 skin warm and dry +eoms intact bl bilateral hands with + radial pulse, brisk cap refill no swelling, no redness a/p: left hand discomfort continue apap/ibu prn
[2019-06-01] MEDS: PRENATAL VITAMINS W/ FOLIC ACID TABLET (FP) PO SCH (10:58)
[2019-06-01] MEDS: NICOTINE 14 MG/24 HOURS TOPICAL PATCH TD SCH (10:58)
[2019-06-01] MEDS: HYDROCORTISONE 2.5% TOPICAL CREAM 30 GM TUBE TP SCH ×2 (10:58→21:43)
[2019-06-01] MEDS: DIVALPROEX SODIUM 500 MG TABLET E.C. PO SCH ×2 (10:58→21:42)
[2019-06-01] MEDS: risperiDONE 2 MG TABLET PO SCH (21:42)
[2019-06-01] MEDS: THIAMINE HCL 100 MG TABLET (FP) PO SCH (21:42)
[2019-06-01] MEDS: BENZTROPINE MESYLATE 1 MG TABLET PO SCH (21:42)
[2019-06-01] MEDS: diphenhydrAMINE HCL 25 MG CAPSULE (FP) PO PRN (21:44)
--- NOTE | 2019-06-02 09:12 | DS ---
[facility] Rehab Discharge Summary - [facility] Rehab Discharge Summary Admission Date: 05/07/19 Discharge Date: 06/02/19 - History Present History: Cocaine dependence Pertinent Past History: 33 years old male admitted to rehab for crack cocaine dependence. Patient denies medical history and reports psychiatric history of bipolar disorder, schizophrenia and PTSD. This is his first admission to [facility]. Patient is unemployed and lives with his sister in [place]. He denies suicide attempt and suicidal ideation at this time. - Discharge Physical Exam Vital Signs: Vital Signs Temperature 97.9 F 06/02/19 06:43 Pulse Rate 92 H 06/02/19 06:43 Respiratory Rate 06/02/19 06:43 Blood Pressure 118/88 06/02/19 06:43 O2 Sat by Pulse Oximetry (%) Pertinent Admission Physical Exam Findings: - Physical General Appearance: No apparent distress HEENTM: PERRLA, Cavity, left molar Respiratory: Lungs Clear, Neck: supple Cardiology: Regular Rhythm & Rate Abdominal: +Bowel Sounds, Soft Musculoskeletal: full weight bearing, full ROM, steady gait. Neurological: CN 2-12 intact - Treatment Discharge Condition: Outpatient referral accepted (Patient will go to [facility] for aftercare. Medically stable for discharge.) Hospital Course: Patient attended groups, had 1:1 with his counselor, was seen by psychiatry. Patient had several requests for pain medication related to pain in his back, molar, and hand. He was prescribed the maximum safe amount of Ibuprofen and encouraged to take it as needed. He requested suboxone for pain, but this was not ordered as his complaints and substance abuse history did not provide sufficient evidence that suboxone was appropriate for his pain complaints. Patient accepted this instruction. - Medication Discharge Medications: Ambulatory Orders NK [No Known Home Medication] 05/07/19 - Medication-Assisted Treatment (MAT) Medication-Assisted Treatment (MAT): No - Discharge Instructions Diet, activity, other medical instructions: Diet: as tolerated Activity: as tolerated Other medical instructions: Please follow up with aftercare referral and make an appointment with the dentist. - Diagnosis (1) Cocaine use disorder Current Visit: Yes Status: Chronic - AMA Did Patient Leave Against Medical Advice: No
[2019-06-02] MEDS: NICOTINE 14 MG/24 HOURS TOPICAL PATCH TD SCH (10:39)
[2019-06-02] MEDS: DOCUSATE SODIUM 100 MG CAPSULE (FP) PO PRN (10:39)
[2019-06-02] MEDS: DIVALPROEX SODIUM 500 MG TABLET E.C. PO SCH ×2 (10:39→21:11)
[2019-06-02] MEDS: HYDROCORTISONE 2.5% TOPICAL CREAM 30 GM TUBE TP SCH ×2 (10:39→21:12)
[2019-06-02] MEDS: PRENATAL VITAMINS W/ FOLIC ACID TABLET (FP) PO SCH (10:39)
--- NOTE | 2019-06-02 14:05 | PN ---
[facility] Progress Note Note: Patient is scheduled for discharge tomorrow. Scripts for 30 days supply of medications(Risperdal 2 mg/hs, Cogentin 1 mg/hs, Depakote 500 mg/bid, Benadryk 50 mg/hs) will be electronically transmitted to [facility] at [address] [place] [address]
[2019-06-02] MEDS: risperiDONE 2 MG TABLET PO SCH (21:11)
[2019-06-02] MEDS: BENZTROPINE MESYLATE 1 MG TABLET PO SCH (21:11)
[2019-06-02] MEDS: THIAMINE HCL 100 MG TABLET (FP) PO SCH (21:11)
[2019-06-02] MEDS: diphenhydrAMINE HCL 25 MG CAPSULE (FP) PO PRN (21:11)
[2019-06-03 07:51] VITALS: BP 126/83; PULSE 86; TEMP 98.1
[2019-06-03] MEDS: DIVALPROEX SODIUM 500 MG TABLET E.C. PO SCH (09:37)
[2019-06-03] MEDS: PRENATAL VITAMINS W/ FOLIC ACID TABLET (FP) PO SCH (09:37)
[2019-06-03] MEDS: NICOTINE 14 MG/24 HOURS TOPICAL PATCH TD SCH (09:38)
[2019-06-03] MEDS: HYDROCORTISONE 2.5% TOPICAL CREAM 30 GM TUBE TP SCH (09:38)
== END 2019-06-03 09:40 | disposition home or self-care (01) | DRG 772 ==
LOC: YASAS 14:25 → Y3W 17:22
PROVIDERS: ADMIT Neuromusculoskeletal Medicine & OMM; ATTEND Neuromusculoskeletal Medicine & OMM
PROC: HZ42ZZZ Group Counseling for Substance Abuse Treatment, Cognitive-Behavioral (ICD-10-PCS; principal; 2019-05-07)
DX: F14.20 Cocaine dependence, uncomplicated (principal); F17.210 Nicotine dependence, cigarettes, uncomplicated; F19.24 Other psychoactive substance dependence with psychoactive substance-induced mood disorder; F25.9 Schizoaffective disorder, unspecified; G47.00 Insomnia, unspecified; K59.00 Constipation, unspecified; K08.89 Other specified disorders of teeth and supporting structures; M79.642 Pain in left hand; M62.838 Other muscle spasm; Z56.0 Unemployment, unspecified
CPT/HCPCS: 36415; 80053; 80164; 81003; 85027; 86593; 86803; 87389; 93005; 93010